=== PATIENT | female | born 2000 | race Caucasian/White ===

== ENCOUNTER 2019-02-21 07:00 | Inpatient (IN) | payer OTHER ==
[~2019-02-21] VITALS: Ht 170.2 cm; Wt 92.7 kg
[2019-02-22] MEDS ORDERED: RINGERS SOLUTION,LACTATED 0 ML IV ONE (04:56)
[2019-02-22] MEDS ORDERED: VANCOMYCIN HCL 1.5 GM in DEXTROSE 5%-WATER 250 ML IV ONE (05:00)
[2019-02-22] MEDS ORDERED: RINGERS SOLUTION,LACTATED 1,000 ML IV ONE ×2 (05:00→06:35)
[2019-02-22] MEDS ORDERED: RINGERS SOLUTION,LACTATED 3,000 ML IV ONE (05:48)
[2019-02-22] MEDS ORDERED: MICROFIBRILLAR COLLAGEN 1 GM PACKAGE TP ONE (05:48)
[2019-02-22] MEDS ORDERED: BUPIVACAINE HCL/PF 0.5% 30 ML VIAL ONE (05:48)
[2019-02-22 06:05] LABS: BASOPHILS % (AUTO) 0.5 % (0.0-2.0); EOSINOPHILS % (AUTO) 1.4 % (1.0-6.0); HEMATOCRIT 43.6 % (36-46); HEMOGLOBIN 14.6 g/dL (12.0-16.0); LYMPHOCYTES # (AUTO) 3.2 K/uL (1.0-4.8); LYMPHOCYTES % (AUTO) 36.6 % (22.0-44.0); MEAN CORPUSCULAR HEMOGLOBIN 30.4 pg (26.0-34.0); MEAN CORPUSCULAR HGB CONC 33.5 G/dL (31.0-37.0); MEAN CORPUSCULAR VOLUME 91 fL (80-100); MONOCYTES # (AUTO) 0.7 K/uL (0.1-1.0); MONOCYTES % (AUTO) 7.4 % (2.0-9.0); NEUTROPHILS # (AUTO) 4.8 K/uL (1.8-7.7); NEUTROPHILS % (AUTO) 54.1 % (40.0-70.0); PLATELET COUNT (AUTO) 245 K/uL (150-450); RED BLOOD CELL COUNT(AUTO) 4.81 MIL/uL (4.00-5.20); RED CELL DISTRIBUTION WIDTH 13.7 % (11.5-14.5)
[2019-02-22 06:12] LABS: ANION GAP 11 mmol/L (8-16); CALCIUM, TOTAL 9.3 mg/dL (8.8-10.5); CARBON DIOXIDE 25 mmol/L (22-29); CHLORIDE 105 mmol/L (98-107); CREATININE 0.79 mg/dL (0.60-1.30); GLOMERULAR FILTR. RATE CALC > 60 mL/min (>60); GLUCOSE,RANDOM 100 mg/dL (70-110); POTASSIUM 4.3 mmol/L (3.5-5.1); SODIUM SERUM 141 mmol/L (136-145); UREA NITROGEN, BLOOD 9 mg/dL (7-18)
[2019-02-22 06:16] LABS: PROTHROMBIN TIME 10.3 SEC (9.4-11.6)
[2019-02-22] MEDS ORDERED: MUPIROCIN CALCIUM 2% 22 GM OINTMENT ONE (06:22)
[2019-02-22] MEDS ORDERED: VANCOMYCIN HCL 1 GM/VIAL ONE (06:23)
[2019-02-22 06:24] LABS: ALANINE AMINOTRANSFERASE 64 U/L (12-78); ALBUMIN 3.9 g/dL (3.4-5.0); ALKALINE PHOSPHATASE 74 U/L (46-116); ASPARTATE AMINOTRANSFERASE 28 U/L (15-37); BILIRUBIN,TOTAL 0.3 mg/dL (0.1-1.0); HCG,QUANTITATIVE < 1 mIU/mL (0-6)
[2019-02-22] MEDS ORDERED: TRANEXAMIC ACID 1,000 MG in DEXTROSE 5%-WATER 50 ML IV ONE (06:45)
[2019-02-22] MEDS ORDERED: BUPIVACAINE LIPOSOME/PF 1.3%-13.3MG/ML SUSPENSION 20 ML VIAL INJ ONE (06:45)
[2019-02-22] MEDS ORDERED: CeFAZolin 2 GM/DEXTROSE 50 ML IV ONE (07:00)
[2019-02-22] MEDS ORDERED: LIDOCAINE/PF 1% 2 ML VIAL ID ONE (07:00)
[2019-02-22] MEDS ORDERED: FentaNYL CITRATE-PF 100 MCG/2 ML VIAL IVP PRN (08:00)
[2019-02-22] MEDS ORDERED: ZOLPIDEM TARTRATE 10 MG TABLET PO PRN (08:00)
[2019-02-22] MEDS ORDERED: HYDROmorphone 2 MG/ML SYRINGE IVP PRN (08:00)
[2019-02-22] MEDS ORDERED: MEPERIDINE-PF 25 MG/ML VIAL IVP PRN (08:00)
[2019-02-22] MEDS ORDERED: OXYGEN THERAPY IH SCH ×2 (08:00)
[2019-02-22] MEDS ORDERED: SUGAMMADEX SODIUM 200 MG/2 ML VIAL IVP ONE (09:01)
[2019-02-22] MEDS ORDERED: HYDROmorphone 2 MG/ML SYRINGE ONE (09:36)
[2019-02-22] MEDS ORDERED: KETOROLAC TROMETHAMINE 30 MG/ML VIAL ONE (09:38)
[2019-02-22] MEDS ORDERED: MEPERIDINE-PF 25 MG/ML VIAL ONE (09:47)
[2019-02-22 11:00] VITALS: BP 129/80
[2019-02-22] MEDS ORDERED: SODIUM CHLORIDE 0.9% 250 ML IV ONE (11:12)
[2019-02-22] MEDS: HYDROmorphone 2 MG/ML SYRINGE IVP PRN ×2 (11:20→14:38)
[2019-02-22] MEDS: ONDANSETRON HCL 4 MG/2 ML VIAL IVP PRN ×2 (11:49→15:25)
[2019-02-22] MEDS ORDERED: FentaNYL CITRATE-PF 250 MCG/5 ML VIAL IVP ONE (12:00)
[2019-02-22] MEDS ORDERED: 0.9% SODIUM CHLORIDE 10 ML VIAL IVP ONE (12:00)
[2019-02-22] MEDS ORDERED: HYDROmorphone 2 MG/ML SYRINGE IVP ONE (12:00)
[2019-02-22] MEDS ORDERED: DEXAMETHASONE SOD PHOS 4 MG/ML VIAL IVP ONE (12:00)
[2019-02-22] MEDS ORDERED: SUCCINYLCHOLINE CHLORIDE 20 MG/ML 10 ML VIAL IVP ONE (12:00)
[2019-02-22] MEDS ORDERED: LIDOCAINE/PF 2% 5 ML VIAL INJ ONE (12:00)
[2019-02-22] MEDS ORDERED: MIDAZOLAM HCL 2 MG/2 ML VIAL IVP ONE (12:00)
[2019-02-22] MEDS ORDERED: PROPOFOL 1% 20 ML VIAL IVP ONE (12:00)
[2019-02-22] MEDS ORDERED: ONDANSETRON HCL 4 MG/2 ML VIAL IVP ONE (12:00)
[2019-02-22] MEDS: ACETAMINOPHEN 1000 MG/ISO-OSM 100 ML IV SCH ×2 (13:03→18:42)
[2019-02-22] MEDS: VANCOMYCIN HCL 1.5 GM in DEXTROSE 5%-WATER 250 ML IV SCH ×2 (14:39→22:14)
[2019-02-22 14:43] VITALS: BP 127/81
[2019-02-22 15:10] VITALS: BP 115/58
[2019-02-22 19:23] VITALS: BP 121/83
[2019-02-22] MEDS: CYCLOBENZAPRINE HCL 10 MG TABLET PO PRN (19:44)
[2019-02-22] MEDS ORDERED: SODIUM CHLORIDE 0.9% 500 ML IV ONE (23:02)
[2019-02-22 23:30] VITALS: BP 106/44
[2019-02-23] MEDS: ACETAMINOPHEN 1000 MG/ISO-OSM 100 ML IV SCH ×2 (01:35→06:04)
[2019-02-23] MEDS: ONDANSETRON HCL 4 MG/2 ML VIAL IVP PRN (02:46)
[2019-02-23] MEDS: HYDROmorphone 2 MG/ML SYRINGE IVP PRN ×3 (02:47→16:06)
[2019-02-23 05:05] VITALS: BP 100/44
[2019-02-23] MEDS: OxyCODONE HCL 10 MG IR TABLET PO PRN ×2 (05:28→10:08)
[2019-02-23 07:40] VITALS: BP 118/72
[2019-02-23] MEDS: ENOXAPARIN SODIUM 30 MG/0.3 ML PF SYRINGE SQ SCH ×3 (08:42→19:23)
[2019-02-23 11:10] VITALS: BP 123/72
[2019-02-23 15:15] VITALS: BP 123/74
[2019-02-23] MEDS ORDERED: ACETAMINOPHEN 325 MG TABLET PO PRN (16:15)
[2019-02-23] MEDS ORDERED: MAGNESIUM HYDROXIDE SUSPENSION 30 ML UDCUP PO PRN (16:15)
[2019-02-23] MEDS: OxyCODONE HCL/ACETAMINOPHEN 10-325 MG TABLET PO PRN (19:22)
[2019-02-23 20:03] VITALS: BP 117/64
[2019-02-24] VITALS (7 sets, daily range): BP systolic 102–134; BP diastolic 59–77
[2019-02-24] MEDS: OxyCODONE HCL/ACETAMINOPHEN 10-325 MG TABLET PO PRN ×3 (01:44→18:27)
[2019-02-24] MEDS: CYCLOBENZAPRINE HCL 10 MG TABLET PO PRN ×2 (02:37→10:23)
[2019-02-24 07:36] LABS: BASOPHILS % (AUTO) 0.4 % (0.0-2.0); EOSINOPHILS % (AUTO) 0.5 % (1.0-6.0); HEMATOCRIT 38.8 % (36-46); HEMOGLOBIN 13.1 g/dL (12.0-16.0); LYMPHOCYTES # (AUTO) 3.9 K/uL (1.0-4.8); LYMPHOCYTES % (AUTO) 36.6 % (22.0-44.0); MEAN CORPUSCULAR HEMOGLOBIN 30.4 pg (26.0-34.0); MEAN CORPUSCULAR HGB CONC 33.7 G/dL (31.0-37.0); MEAN CORPUSCULAR VOLUME 90 fL (80-100); MONOCYTES % (AUTO) 9.7 % (2.0-9.0); NEUTROPHILS # (AUTO) 5.6 K/uL (1.8-7.7); NEUTROPHILS % (AUTO) 52.8 % (40.0-70.0); PLATELET COUNT (AUTO) 216 K/uL (150-450); RED CELL DISTRIBUTION WIDTH 13.4 % (11.5-14.5)
[2019-02-24 07:48] LABS: ANION GAP 11 mmol/L (8-16); CALCIUM, TOTAL 8.6 mg/dL (8.8-10.5); CARBON DIOXIDE 26 mmol/L (22-29); CHLORIDE 104 mmol/L (98-107); CREATININE 0.87 mg/dL (0.60-1.30); GLOMERULAR FILTR. RATE CALC > 60 mL/min (>60); GLUCOSE,RANDOM 83 mg/dL (70-110); POTASSIUM 3.9 mmol/L (3.5-5.1); SODIUM SERUM 141 mmol/L (136-145); UREA NITROGEN, BLOOD 9 mg/dL (7-18)
[2019-02-24] MEDS: ENOXAPARIN SODIUM 30 MG/0.3 ML PF SYRINGE SQ SCH ×2 (08:03→20:46)
[2019-02-24] MEDS ORDERED: DEXTROSE 5%-0.45% SODIUM CHL 1,000 ML IV ONE (10:45)
[2019-02-25] VITALS: BP 132/82
[2019-02-25 00:38] LABS: APPEARANCE,URINE CLEAR (CLEAR); BILIRUBIN,URINE NEGATIVE (NEGATIVE); GLUCOSE, URINE (UA) NEGATIVE (NEGATIVE); KETONES,URINE NEGATIVE (NEGATIVE); LEUKOCYTE ESTERASE ,URINE NEGATIVE (NEGATIVE); NITRATE,URINE NEGATIVE (NEGATIVE); OCCULT BLOOD,URINE LARGE (NEGATIVE); PROTEIN,URINE NEGATIVE (NEGATIVE); UROBILINOGEN,URINE 0.2 mg/dL (<=1.0)
[2019-02-25 00:45] LABS: WBC,URINE 0-2 /HPF (0-5)
[2019-02-25 00:46] LABS: BACTERIA,URINE None Seen /HPF (None Seen); SQUAMOUS EPITHELIAL CELL,UR Moderate /LPF (None Seen)
[2019-02-25] MEDS: OxyCODONE HCL/ACETAMINOPHEN 10-325 MG TABLET PO PRN ×3 (01:20→12:38)
[2019-02-25 05:20] VITALS: BP 100/67
[2019-02-25] MEDS: ENOXAPARIN SODIUM 30 MG/0.3 ML PF SYRINGE SQ SCH (07:58)
[2019-02-25] MEDS: CYCLOBENZAPRINE HCL 10 MG TABLET PO PRN (07:59)
[2019-02-25 08:16] VITALS: BP 114/75
[2019-02-25 11:36] VITALS: BP 159/104
[2019-02-25 12:15] LABS: BASOPHILS % (AUTO) 0.4 % (0.0-2.0); EOSINOPHILS % (AUTO) 0.8 % (1.0-6.0); HEMATOCRIT 43.1 % (36-46); HEMOGLOBIN 14.6 g/dL (12.0-16.0); LYMPHOCYTES # (AUTO) 3.3 K/uL (1.0-4.8); LYMPHOCYTES % (AUTO) 26.3 % (22.0-44.0); MEAN CORPUSCULAR HEMOGLOBIN 30.3 pg (26.0-34.0); MEAN CORPUSCULAR HGB CONC 33.8 G/dL (31.0-37.0); MEAN CORPUSCULAR VOLUME 90 fL (80-100); MONOCYTES # (AUTO) 0.8 K/uL (0.1-1.0); MONOCYTES % (AUTO) 6.3 % (2.0-9.0); NEUTROPHILS # (AUTO) 8.3 K/uL (1.8-7.7); NEUTROPHILS % (AUTO) 66.2 % (40.0-70.0); PLATELET COUNT (AUTO) 271 K/uL (150-450); RED CELL DISTRIBUTION WIDTH 13.2 % (11.5-14.5)
[2019-02-25 12:27] LABS: ANION GAP 8 mmol/L (8-16); CALCIUM, TOTAL 9.6 mg/dL (8.8-10.5); CARBON DIOXIDE 31 mmol/L (22-29); CHLORIDE 101 mmol/L (98-107); CREATININE 0.84 mg/dL (0.60-1.30); GLOMERULAR FILTR. RATE CALC > 60 mL/min (>60); GLUCOSE,RANDOM 104 mg/dL (70-110); POTASSIUM 4.1 mmol/L (3.5-5.1); SODIUM SERUM 140 mmol/L (136-145); UREA NITROGEN, BLOOD 9 mg/dL (7-18)
[2019-02-25 14:24] VITALS: BP 144/64
[2019-02-25 16:10] VITALS: BP 133/87
== END 2019-02-25 17:34 | DRG 489 ==
LOC: 6N 02-22 05:20 → 4E 02-22 06:12
PROVIDERS: ADMIT Orthopaedic Surgery; ATTEND Orthopaedic Surgery
PROC: 0SBD4ZZ Excision of Left Knee Joint, Percutaneous Endoscopic Approach (ICD-10-PCS; 2019-02-22)
PROC: 0MQM4ZZ Repair Left Hip Bursa and Ligament, Percutaneous Endoscopic Approach (ICD-10-PCS; principal; 2019-02-22 07:00)
DX: S73.102A Unspecified sprain of left hip, initial encounter (principal); Z88.1 Allergy status to other antibiotic agents; R50.9 Fever, unspecified; E66.01 Morbid (severe) obesity due to excess calories; X58.XXXA Exposure to other specified factors, initial encounter; Z91.018 Allergy to other foods; Y93.89 Activity, other specified; Y92.89 Other specified places as the place of occurrence of the external cause; Y99.8 Other external cause status; Z68.52 Body mass index [BMI] pediatric, 5th percentile to less than 85th percentile for age
CPT/HCPCS: 73503; 87040; 87081; 88305; 97116; 97162; 97165; 97530; 97535; C9290; G0238; G0378; J0131; J0330; J1100; J1170; J1650; J1885; J2175; J2250; J2405; J2704; J3010; J3370; J3490; J7040; J7050; J7060; J7120

== ENCOUNTER 2019-02-25 17:40 | Inpatient (IN) | payer OTHER ==
[~2019-02-25] VITALS: Ht 170.2 cm; Wt 92.1 kg
[2019-02-25 18:00] VITALS: BP 117/64
[2019-02-25] MEDS ORDERED: ACETAMINOPHEN 325 MG TABLET PO PRN (19:15)
[2019-02-25] MEDS: SENNA 187 MG TABLET PO SCH (21:11)
[2019-02-25] MEDS: ENOXAPARIN SODIUM 30 MG/0.3 ML PF SYRINGE SQ SCH (21:11)
[2019-02-25] MEDS: OxyCODONE HCL/ACETAMINOPHEN 10-325 MG TABLET PO PRN (21:12)
[2019-02-25] MEDS: CYCLOBENZAPRINE HCL 10 MG TABLET PO PRN (21:12)
[2019-02-25] MEDS: MELATONIN 5 MG TABLET PO PRN (21:32)
[2019-02-26] MEDS ORDERED: INFLUENZA VIRUS VACCINE QVS 2019-20 (3YR+)/PF 60 MCG/0.5 ML SYRINGE IM ONE (01:00)
[2019-02-26 05:13] VITALS: BP 107/62
[2019-02-26] MEDS: OxyCODONE HCL/ACETAMINOPHEN 10-325 MG TABLET PO PRN ×4 (06:45→19:31)
[2019-02-26 06:52] LABS: BASOPHILS % (AUTO) 0.5 % (0.0-2.0); EOSINOPHILS % (AUTO) 1.3 % (1.0-6.0); HEMATOCRIT 40.6 % (36-46); HEMOGLOBIN 13.9 g/dL (12.0-16.0); LYMPHOCYTES # (AUTO) 3.5 K/uL (1.0-4.8); LYMPHOCYTES % (AUTO) 34.3 % (22.0-44.0); MEAN CORPUSCULAR HEMOGLOBIN 30.6 pg (26.0-34.0); MEAN CORPUSCULAR HGB CONC 34.3 G/dL (31.0-37.0); MEAN CORPUSCULAR VOLUME 89 fL (80-100); MONOCYTES # (AUTO) 0.8 K/uL (0.1-1.0); MONOCYTES % (AUTO) 7.4 % (2.0-9.0); NEUTROPHILS # (AUTO) 5.8 K/uL (1.8-7.7); NEUTROPHILS % (AUTO) 56.5 % (40.0-70.0); PLATELET COUNT (AUTO) 271 K/uL (150-450); RED BLOOD CELL COUNT(AUTO) 4.55 MIL/uL (4.00-5.20); RED CELL DISTRIBUTION WIDTH 13.5 % (11.5-14.5)
[2019-02-26 07:03] LABS: ALANINE AMINOTRANSFERASE 57 U/L (12-78); ALBUMIN 3.3 g/dL (3.4-5.0); ALKALINE PHOSPHATASE 59 U/L (46-116); ANION GAP 9 mmol/L (8-16); ASPARTATE AMINOTRANSFERASE 34 U/L (15-37); BILIRUBIN,TOTAL 0.4 mg/dL (0.1-1.0); CALCIUM, TOTAL 9.2 mg/dL (8.8-10.5); CARBON DIOXIDE 26 mmol/L (22-29); CHLORIDE 103 mmol/L (98-107); CREATININE 0.92 mg/dL (0.60-1.30); GLOMERULAR FILTR. RATE CALC > 60 mL/min (>60); GLUCOSE,RANDOM 97 mg/dL (70-110); POTASSIUM 4.3 mmol/L (3.5-5.1); SODIUM SERUM 138 mmol/L (136-145); TOTAL PROTEIN, SERUM 6.8 g/dL (6.4-8.2); UREA NITROGEN, BLOOD 8 mg/dL (7-18)
[2019-02-26 07:45] VITALS: BP 108/56
[2019-02-26] MEDS: CYCLOBENZAPRINE HCL 10 MG TABLET PO PRN (09:08)
[2019-02-26] MEDS: ENOXAPARIN SODIUM 30 MG/0.3 ML PF SYRINGE SQ SCH ×3 (09:08→22:25)
[2019-02-26 15:10] VITALS: BP 123/75
[2019-02-26] MEDS: SENNA 187 MG TABLET PO SCH ×3 (20:56→22:27)
[2019-02-26] MEDS: MELATONIN 5 MG TABLET PO PRN (22:14)
[2019-02-27 00:12] VITALS: BP 119/74
[2019-02-27] MEDS: OxyCODONE HCL/ACETAMINOPHEN 10-325 MG TABLET PO PRN ×2 (00:29→08:22)
[2019-02-27 07:30] VITALS: BP 106/56
[2019-02-27] MEDS: ENOXAPARIN SODIUM 30 MG/0.3 ML PF SYRINGE SQ SCH ×2 (08:22→20:27)
[2019-02-27] MEDS ORDERED: HYDROCODONE/ACETAMINOPHEN 5-325 MG TABLET PO PRN (14:30)
[2019-02-27] MEDS ORDERED: ONDANSETRON HCL 4 MG TABLET PO PRN (14:30)
[2019-02-27] MEDS ORDERED: HYDROCODONE/ACETAMINOPHEN 10-325 MG TABLET PO PRN (14:30)
[2019-02-27 16:29] VITALS: BP 121/72
[2019-02-27] MEDS ORDERED: SENN-176 PO (20:16)
[2019-02-27] MEDS ORDERED: ENOX30DI5 SQ (20:16)
[2019-02-27] MEDS: SENNA 187 MG TABLET PO SCH (20:27)
[2019-02-27] MEDS: MELATONIN 5 MG TABLET PO PRN (23:28)
[2019-02-27 23:45] VITALS: BP 121/70
[2019-02-28 07:30] VITALS: BP 114/62
[2019-02-28] MEDS: ENOXAPARIN SODIUM 30 MG/0.3 ML PF SYRINGE SQ SCH (10:04)
[2019-02-28] MEDS ORDERED: HYDR-4061 PO (11:30)
[2019-02-28] MEDS ORDERED: ASPI81 PO (11:30)
[2019-03-01] MEDS ORDERED: ASPIRIN 81 MG CHEWABLE TABLET PO SCH (09:00)
== END 2019-02-28 13:30 | disposition home or self-care (01) | DRG 538 ==
LOC: 2WR 17:40
PROVIDERS: ADMIT Physical Medicine & Rehabilitation; ATTEND Physical Medicine & Rehabilitation
DX: S73.192A Other sprain of left hip, initial encounter (principal); M54.5 Low back pain; G89.29 Other chronic pain; Z88.1 Allergy status to other antibiotic agents; Z91.018 Allergy to other foods
CPT/HCPCS: 87081; 97110; 97116; 97162; 97165; 97530; 97535; J1650; Q0162

== ENCOUNTER 2019-03-15 13:35 | Emergency (ER) | payer OTHER ==
[~2019-03-15] VITALS: Ht 167.6 cm; Wt 81.8 kg
[~2019-03-15 13:35] MED LIST: ASPI81 PO; HYDR-4061 PO; SENN-176 PO
[2019-03-15 16:16] LABS: BASOPHILS % (AUTO) 0.3 % (0.0-2.0); EOSINOPHILS % (AUTO) 0.6 % (1.0-6.0); HEMATOCRIT 40.9 % (36-46); HEMOGLOBIN 13.5 g/dL (12.0-16.0); LYMPHOCYTES # (AUTO) 2.3 K/uL (1.0-4.8); LYMPHOCYTES % (AUTO) 24.8 % (22.0-44.0); MEAN CORPUSCULAR HEMOGLOBIN 29.7 pg (26.0-34.0); MEAN CORPUSCULAR HGB CONC 33.1 G/dL (31.0-37.0); MEAN CORPUSCULAR VOLUME 90 fL (80-100); MONOCYTES # (AUTO) 0.6 K/uL (0.1-1.0); MONOCYTES % (AUTO) 6.1 % (2.0-9.0); NEUTROPHILS # (AUTO) 6.2 K/uL (1.8-7.7); NEUTROPHILS % (AUTO) 68.2 % (40.0-70.0); PLATELET COUNT (AUTO) 369 K/uL (150-450); RED BLOOD CELL COUNT(AUTO) 4.56 MIL/uL (4.00-5.20); RED CELL DISTRIBUTION WIDTH 13.8 % (11.5-14.5)
[2019-03-15 16:51] LABS: ANION GAP 6 mmol/L (8-16); CALCIUM, TOTAL 9.3 mg/dL (8.8-10.5); CARBON DIOXIDE 29 mmol/L (22-29); CHLORIDE 104 mmol/L (98-107); GLOMERULAR FILTR. RATE CALC > 60 mL/min (>60); GLUCOSE,RANDOM 78 mg/dL (70-110); POTASSIUM 3.9 mmol/L (3.5-5.1); SODIUM SERUM 139 mmol/L (136-145)
[2019-03-15 16:57] LABS: ALANINE AMINOTRANSFERASE 39 U/L (12-78); ALKALINE PHOSPHATASE 76 U/L (46-116); ASPARTATE AMINOTRANSFERASE 21 U/L (15-37); BILIRUBIN,TOTAL 0.5 mg/dL (0.1-1.0); C-REACTIVE PROTEIN QUANT 0.23 mg/dL (0.00-0.30); HCG,QUANTITATIVE < 1 mIU/mL (0-6); TOTAL PROTEIN, SERUM 7.6 g/dL (6.4-8.2); UREA NITROGEN, BLOOD 7 mg/dL (7-18)
[2019-03-15 17:31] VITALS: BP 105/51
[2019-03-15 18:20] LABS: ERYTHROCYTE SEDIMENTATION RATE 35 MM/HR (0-20)
== END 2019-03-15 18:22 | disposition home or self-care (01) ==
LOC: EMS 13:36
DX: M25.552 Pain in left hip (principal); G89.18 Other acute postprocedural pain; Z88.1 Allergy status to other antibiotic agents; Z91.018 Allergy to other foods
CPT/HCPCS: 85651; 86140; 93971

== ENCOUNTER 2020-08-21 05:10 | Day surgery (SDC) | payer OTHER ==
[2020-08-20 12:35] LABS: COVID AG,FIA SOURCE NASOPHARYNGEAL
[~2020-08-21] VITALS: Ht 167.6 cm; Wt 86.4 kg
[~2020-08-21 05:10] MED LIST changes: +ASPI-1450 PO; -ASPI81 PO; +CeFAZolin 2 GM/DEXTROSE 50 ML IV ONE; -HYDR-4061 PO; +RINGERS SOLUTION,LACTATED 1,000 ML IV ONE; -SENN-176 PO
[2020-08-21] MEDS ORDERED: MUPIROCIN CALCIUM 2% 22 GM OINTMENT ONE (06:00)
[2020-08-21] MEDS ORDERED: BUPIVACAINE HCL/PF 0.5% 30 ML VIAL ONE (06:00)
[2020-08-21] MEDS ORDERED: BUPIVACAINE HCL/PF 0.25% 30 ML VIAL ONE (06:00)
[2020-08-21] MEDS ORDERED: MICROFIBRILLAR COLLAGEN 1 GM PACKAGE TP ONE (06:00)
[2020-08-21] MEDS ORDERED: VANCOMYCIN HCL 1 GM/VIAL ONE (06:00)
[2020-08-21] MEDS ORDERED: SODIUM CL IRRIG SOLN BAG 3,000 ML IRRIG ONE (06:02)
[2020-08-21] MEDS ORDERED: BUPIVACAINE LIPOSOME/PF 1.3%-13.3MG/ML SUSPENSION 20 ML VIAL INJ ONE (06:15)
[2020-08-21] MEDS ORDERED: MEPERIDINE-PF 25 MG/ML VIAL IVP PRN (07:00)
[2020-08-21] MEDS ORDERED: OxyCODONE HCL 5 MG IR TABLET PO PRN (07:00)
[2020-08-21] MEDS ORDERED: CeFAZolin 2 GM/DEXTROSE 50 ML IV ONE ×2 (07:00→08:38)
[2020-08-21] MEDS ORDERED: LIDOCAINE/PF 1% 2 ML VIAL ID ONE (07:00)
[2020-08-21] MEDS ORDERED: ACETAMINOPHEN 1000 MG/ISO-OSM 100 ML IV ONE (07:04)
[2020-08-21] MEDS ORDERED: OXYGEN THERAPY IH SCH (08:00)
[2020-08-21] MEDS ORDERED: HYDROmorphone 2 MG/ML VIAL ONE (08:06)
[2020-08-21] MEDS: HYDROmorphone 2 MG/ML VIAL IVP PRN ×2 (08:08→08:45)
[2020-08-21] MEDS ORDERED: FentaNYL CITRATE PF 100 MCG/2 ML VIAL ONE (08:15)
[2020-08-21] MEDS: FentaNYL CITRATE PF 100 MCG/2 ML VIAL IVP PRN ×2 (08:35→08:48)
[2020-08-21] MEDS ORDERED: RINGERS SOLUTION,LACTATED 1,000 ML IV ONE (08:39)
[2020-08-21] MEDS ORDERED: OxyCODONE HCL/ACETAMINOPHEN 5-325 MG TABLET ONE (10:12)
[2020-08-21] MEDS ORDERED: ONDANSETRON HCL 4 MG/2 ML VIAL ONE (10:45)
[2020-08-21] MEDS ORDERED: ONDANSETRON HCL 4 MG/2 ML VIAL IVP ONE ×2 (11:00→12:00)
[2020-08-21] MEDS ORDERED: PROMETHAZINE HCL 25 MG TABLET PO PRN (11:15)
[2020-08-21] MEDS ORDERED: GLYCOPYRROLATE 0.2 MG/ML VIAL IM ONE (12:00)
[2020-08-21] MEDS ORDERED: PROPOFOL 1% 20 ML VIAL IVP ONE (12:00)
[2020-08-21] MEDS ORDERED: MIDAZOLAM HCL 2 MG/2 ML VIAL IVP ONE (12:00)
[2020-08-21] MEDS ORDERED: DEXAMETHASONE SOD PHOS 4 MG/ML VIAL IVP ONE (12:00)
[2020-08-21] MEDS ORDERED: KETAMINE HCL 50 MG/ML 10 ML VIAL IVP ONE (12:00)
[2020-08-21] MEDS ORDERED: NEOSTIGMINE METHYLSULFATE 1 MG/ML 10 ML VIAL IVP ONE (12:00)
[2020-08-21] MEDS ORDERED: FentaNYL CITRATE PF 100 MCG/2 ML VIAL IVP ONE (12:00)
[2020-08-21] MEDS ORDERED: LIDOCAINE/PF 2% 5 ML VIAL IM ONE (12:00)
[2020-08-21] MEDS ORDERED: KETOROLAC TROMETHAMINE 60 MG/2 ML VIAL IM ONE (12:00)
[2020-08-21] MEDS ORDERED: ROCURONIUM BROMIDE 10 MG/ML 5 ML VIAL IVP ONE (12:00)
== END 2020-08-21 11:15 | disposition home or self-care (01) ==
LOC: SURGERY 05:10
PROVIDERS: ATTEND Orthopaedic Surgery
DX: T84.84XA Pain due to internal orthopedic prosthetic devices, implants and grafts, initial encounter (principal); L90.5 Scar conditions and fibrosis of skin; M71.552 Other bursitis, not elsewhere classified, left hip; F41.9 Anxiety disorder, unspecified; F12.90 Cannabis use, unspecified, uncomplicated; Z20.822 Contact with and (suspected) exposure to COVID-19; Z79.899 Other long term (current) drug therapy; Y83.8 Other surgical procedures as the cause of abnormal reaction of the patient, or of later complication, without mention of misadventure at the time of the procedure; Y92.89 Other specified places as the place of occurrence of the external cause
CPT/HCPCS: 11406; 20680; 27062; 84703; 87426; A9575; C9290; C9803; J0131; J0690; J1100; J1170; J1885; J2250; J2405; J2704; J3010; J3370; J3490 ×5; J7120